=== PATIENT | male | born 1940 | race Two or more races ===

== ENCOUNTER 2019-04-22 09:38 | Inpatient (IN) | payer MEDICARE, MEDICAID ==
[~2019-04-22] VITALS: Ht 172.7 cm; Wt 73.5 kg
[2019-04-22] MEDS ORDERED: ONDANSETRON HCL 4MG/2ML INJ IV ONE (10:00)
[2019-04-22] MEDS ORDERED: FENTANYL CITRATE/PF 50MCG/ML 2ML VIAL IV ONE (10:00)
[2019-04-22] MEDS ORDERED: NITROGLYCERIN OINT 1GM/INCH UDPKT TD ONE (10:00)
[2019-04-22 10:09] LABS: BASOPHILS % 1.3 % (0.0-2.0); EOSINOPHILS % 3.7 % (0.0-5.0); HEMOGLOBIN. 7.9 g/dL (14.0-18.0); LYMPHOCYTES % 13.3 % (20.0-50.0); MEAN CORPUSCULAR HEMOGLOBIN 31.1 pg (28.0-32.0); MEAN CORPUSCULAR VOLUME 90.4 fL (80.0-94.0); MEAN PLATELET VOLUME 10.1 fl (7.4-10.4); NEUTROPHILS % 73.7 % (40.0-76.0); PLATELET 136 x1000/uL (130-400); RED BLOOD CELL COUNT 2.54 mill/uL (4.7-6.1)
[2019-04-22 10:13] LABS: CHLORIDE 110 mEq/L (98-107)
[2019-04-22 11:24] LABS: TOTAL IRON BINDING CAPACITY 181 ug/dL (250-450)
[2019-04-22] MEDS ORDERED: ONDANSETRON HCL 4MG/2ML INJ IV PRN (12:45)
[2019-04-22 12:51] LABS: CLARITY URINE CLEAR (CLEAR); COLOR URINE YELLOW (YELLOW); KETONES URINE NEGATIVE (NEGATIVE); LEUKOCYTE ESTERASE URINE NEGATIVE (NEGATIVE); NITRITE URINE NEGATIVE (NEGATIVE); OCCULT BLOOD URINE NEGATIVE (NEGATIVE); PROTEIN URINE 2+ (NEGATIVE); SPECIFIC GRAVITY URINE 1.013 (1.005-1.030); UROBILINOGEN URINE 0.2 E.U./dL (0.2-1.0)
[2019-04-22] MEDS ORDERED: IPRATROPIUM/ALBUTEROL 0.5-3(2.5)MG/3ML NEB NEB PRN (13:30)
[2019-04-22] MEDS ORDERED: CLONIDINE 0.1MG TABLET PO PRN (13:30)
[2019-04-22] MEDS ORDERED: ENOXAPARIN 40MG/0.4ML SYR SUBCUT SCH (13:30)
[2019-04-22] MEDS ORDERED: SODIUM CHLORIDE 0.9% 1,000 ML IV ONE (13:45)
[2019-04-22] MEDS: HYDROCODONE/APAP 7.5/325MG 1 TAB TABLET PO PRN ×2 (14:04→18:00)
[2019-04-22] MEDS: THIAMINE HCL 100MG TABLET PO SCH (14:04)
[2019-04-22] MEDS: FUROSEMIDE 40MG/4ML VIAL IV SCH (14:05)
[2019-04-22] MEDS ORDERED: HEPARIN 5000 UNITS/ML VIAL SUBCUT SCH (21:00)
[2019-04-22] MEDS ORDERED: ATORVASTATIN CALCIUM 40MG TABLET PO NR (21:00)
[2019-04-23] VITALS (7 sets, daily range): BP systolic 115–142; BP diastolic 51–85
[2019-04-23] MEDS ORDERED: DEXTROSE 50% WATER 50ML SYRINGE IV PRN (05:00)
[2019-04-23] MEDS: BLOOD SUGAR DIAGNOSTIC STRIP TEST SCH ×4 (06:15→21:17)
[2019-04-23] MEDS: INSULIN LISPRO 100 UNITS/ML SUBCUT SCH ×4 (07:50→21:00)
[2019-04-23 08:15] LABS: BASOPHILS % 1.3 % (0.0-2.0); EOSINOPHILS % 4.4 % (0.0-5.0); HEMATOCRIT. 22.3 % (42.0-52.0); HEMOGLOBIN. 7.6 g/dL (14.0-18.0); LYMPHOCYTES % 20.3 % (20.0-50.0); MEAN CORPUSCULAR HEMOGLOBIN 30.7 pg (28.0-32.0); MEAN CORPUSCULAR VOLUME 90.5 fL (80.0-94.0); MEAN PLATELET VOLUME 10.7 fl (7.4-10.4); MONOCYTES % 10.6 % (2.0-8.0); NEUTROPHILS % 63.4 % (40.0-76.0); PLATELET 133 x1000/uL (130-400); RED BLOOD CELL COUNT 2.47 mill/uL (4.7-6.1); RED CELL DISTRIBUTION WIDTH 15.5 % (11.6-14.6)
[2019-04-23 08:26] LABS: CHLORIDE 112 mEq/L (98-107)
[2019-04-23 08:45] LABS: LDL CHOLESTEROL 39 mg/dL (5-100)
[2019-04-23 08:46] LABS: HDL CHOLESTEROL 57 mg/dL (40-59)
[2019-04-23] MEDS ORDERED: SODIUM POLYSTYRENE SULFONATE 15 G/60 ML BOT PO SCH (09:00)
[2019-04-23] MEDS: ASPIRIN 81MG EC TABLET PO SCH (09:34)
[2019-04-23] MEDS: THIAMINE HCL 100MG TABLET PO SCH (09:34)
[2019-04-23] MEDS: HEPARIN 5000 UNITS/ML VIAL SUBCUT SCH ×2 (09:36→21:46)
[2019-04-23] MEDS: FUROSEMIDE 40MG/4ML VIAL IV SCH (10:21)
[2019-04-23] MEDS ORDERED: HEPARIN 1000 UNITS/ML 10ML ONE (13:32)
[2019-04-23] MEDS: ONDANSETRON HCL 4MG/2ML INJ IV PRN (14:32)
[2019-04-23] MEDS: ACETAMINOPHEN 325MG TABLET PO PRN (14:33)
[2019-04-23] MEDS: HYDROMORPHONE HCL/PF 2MG/ML CPJ IV PRN (15:14)
[2019-04-23] MEDS: ATORVASTATIN CALCIUM 40MG TABLET PO SCH (21:46)
[2019-04-24] VITALS (7 sets, daily range): BP systolic 127–151; BP diastolic 41–89
[2019-04-24 06:05] LABS: BASOPHILS % 1.2 % (0.0-2.0); EOSINOPHILS % 4.2 % (0.0-5.0); HEMATOCRIT. 23.5 % (42.0-52.0); LYMPHOCYTES % 24.8 % (20.0-50.0); MEAN CORPUSCULAR HEMOGLOBIN 30.6 pg (28.0-32.0); MEAN CORPUSCULAR VOLUME 89.1 fL (80.0-94.0); MEAN PLATELET VOLUME 10.6 fl (7.4-10.4); MONOCYTES % 11.6 % (2.0-8.0); NEUTROPHILS % 58.2 % (40.0-76.0); PLATELET 123 x1000/uL (130-400); RED BLOOD CELL COUNT 2.63 mill/uL (4.7-6.1); RED CELL DISTRIBUTION WIDTH 14.9 % (11.6-14.6)
[2019-04-24] MEDS: BLOOD SUGAR DIAGNOSTIC STRIP TEST SCH ×4 (07:06→20:42)
[2019-04-24] MEDS: INSULIN LISPRO 100 UNITS/ML SUBCUT SCH ×4 (07:07→20:42)
[2019-04-24] MEDS: ASPIRIN 81MG EC TABLET PO SCH (08:02)
[2019-04-24] MEDS: FUROSEMIDE 40MG/4ML VIAL IV SCH (08:02)
[2019-04-24] MEDS: HEPARIN 5000 UNITS/ML VIAL SUBCUT SCH ×2 (08:03→20:41)
[2019-04-24] MEDS: THIAMINE HCL 100MG TABLET PO SCH (08:13)
[2019-04-24] MEDS: HYDROMORPHONE HCL/PF 2MG/ML CPJ IV PRN (11:22)
[2019-04-24] MEDS: ACETAMINOPHEN 325MG TABLET PO PRN (17:12)
[2019-04-24 18:22] LABS: HEPATITIS B SURFACE ANTIGEN NEGATIVE
[2019-04-24 18:52] LABS: HEPATITIS A AB IGM NEGATIVE (NEGATIVE)
[2019-04-24] MEDS: ATORVASTATIN CALCIUM 40MG TABLET PO SCH (20:41)
[2019-04-25] VITALS (20 sets, daily range): BP systolic 139–172; BP diastolic 59–89
[2019-04-25 07:46] LABS: BASOPHILS % 1.9 % (0.0-2.0); EOSINOPHILS % 3.1 % (0.0-5.0); HEMOGLOBIN. 8.4 g/dL (14.0-18.0); LYMPHOCYTES % 22.5 % (20.0-50.0); MEAN CORPUSCULAR VOLUME 88.3 fL (80.0-94.0); MEAN PLATELET VOLUME 10.2 fl (7.4-10.4); MONOCYTES % 9.9 % (2.0-8.0); NEUTROPHILS % 62.6 % (40.0-76.0); PLATELET 140 x1000/uL (130-400); RED BLOOD CELL COUNT 2.72 mill/uL (4.7-6.1); RED CELL DISTRIBUTION WIDTH 14.3 % (11.6-14.6)
[2019-04-25] MEDS: INSULIN LISPRO 100 UNITS/ML SUBCUT SCH ×4 (07:50→22:38)
[2019-04-25 07:53] LABS: CHLORIDE 107 mEq/L (98-107)
[2019-04-25] MEDS: BLOOD SUGAR DIAGNOSTIC STRIP TEST SCH ×4 (08:12→22:38)
[2019-04-25] MEDS: ASPIRIN 81MG EC TABLET PO SCH (09:00)
[2019-04-25] MEDS: THIAMINE HCL 100MG TABLET PO SCH (09:00)
[2019-04-25] MEDS: HEPARIN 5000 UNITS/ML VIAL SUBCUT SCH ×2 (09:00→21:33)
[2019-04-25] MEDS: FUROSEMIDE 40MG/4ML VIAL IV SCH (09:44)
[2019-04-25] MEDS ORDERED: LACTULOSE 20G/30ML UDC PO NR (11:00)
[2019-04-25] MEDS: ONDANSETRON HCL 4MG/2ML INJ IV PRN (11:15)
[2019-04-25] MEDS ORDERED: SODIUM BICARBONATE 4% (2.4MEQ) 5ML VIAL IV ONE (12:34)
[2019-04-25] MEDS ORDERED: HEPARIN 1000 UNITS/ML 10ML ONE (12:35)
[2019-04-25] MEDS ORDERED: CEFAZOLIN 1000MG PREMIX 50 ML IV ONE (12:41)
[2019-04-25] MEDS ORDERED: FENTANYL CITRATE/PF 50MCG/ML 2ML VIAL ONE (12:41)
[2019-04-25] MEDS ORDERED: LIDOCAINE HCL 1% 20ML VIAL (Pyxis) INJ ONE (12:55)
[2019-04-25] MEDS ORDERED: CEFAZOLIN 1000MG PREMIX 50 ML IV NR (13:00)
[2019-04-25] MEDS ORDERED: LIDOCAINE HCL/EPINEPHRINE 1%-EPI 1:100,000 20 ML VIAL ONE (13:14)
[2019-04-25] MEDS ORDERED: FENTANYL CITRATE/PF 50MCG/ML 2ML VIAL IV ONE (13:15)
[2019-04-25] MEDS: ATORVASTATIN CALCIUM 40MG TABLET PO SCH (21:33)
[2019-04-25] MEDS: CARVEDILOL 3.125 MG TABLET PO SCH (21:33)
[2019-04-26] VITALS: BP 138/58
[2019-04-26 04:00] VITALS: BP 133/50
[2019-04-26] MEDS: HYDROMORPHONE HCL/PF 2MG/ML CPJ IV PRN (06:34)
[2019-04-26] MEDS: BLOOD SUGAR DIAGNOSTIC STRIP TEST SCH ×4 (06:56→21:26)
[2019-04-26 07:03] LABS: BASOPHILS % 1.7 % (0.0-2.0); EOSINOPHILS % 4.9 % (0.0-5.0); HEMATOCRIT. 25.7 % (42.0-52.0); MEAN CORPUSCULAR HEMOGLOBIN 30.8 pg (28.0-32.0); MEAN CORPUSCULAR VOLUME 88.5 fL (80.0-94.0); MEAN PLATELET VOLUME 10.1 fl (7.4-10.4); MONOCYTES % 9.8 % (2.0-8.0); NEUTROPHILS % 61.6 % (40.0-76.0); PLATELET 153 x1000/uL (130-400); RED BLOOD CELL COUNT 2.91 mill/uL (4.7-6.1); RED CELL DISTRIBUTION WIDTH 14.6 % (11.6-14.6)
[2019-04-26] MEDS: INSULIN LISPRO 100 UNITS/ML SUBCUT SCH ×4 (07:50→21:33)
[2019-04-26 08:00] VITALS: BP 136/49
[2019-04-26] MEDS: HEPARIN 5000 UNITS/ML VIAL SUBCUT SCH ×2 (09:00→21:26)
[2019-04-26] MEDS: CARVEDILOL 3.125 MG TABLET PO SCH ×2 (09:00→21:26)
[2019-04-26] MEDS: ASPIRIN 81MG EC TABLET PO SCH (09:24)
[2019-04-26] MEDS: THIAMINE HCL 100MG TABLET PO SCH (09:24)
[2019-04-26 12:00] VITALS: BP 110/59
[2019-04-26 16:00] VITALS: BP 151/62
[2019-04-26 20:00] VITALS: BP 135/48
[2019-04-26] MEDS: ATORVASTATIN CALCIUM 40MG TABLET PO SCH (21:26)
[2019-04-27] VITALS: BP 144/82
[2019-04-27 04:00] VITALS: BP 156/52
[2019-04-27] MEDS: BLOOD SUGAR DIAGNOSTIC STRIP TEST SCH ×4 (07:10→20:34)
[2019-04-27] MEDS: INSULIN LISPRO 100 UNITS/ML SUBCUT SCH ×4 (07:40→20:34)
[2019-04-27 08:13] LABS: HEMATOCRIT 26.6 % (42.0-52.0); HEMOGLOBIN 9.1 g/dL (14.0-18.0); MEAN CORPUSCULAR HEMOGLOBIN 30.5 pg (28.0-32.0); PLATELET 163 x1000/uL (130-400); RED BLOOD CELL COUNT 2.99 mill/uL (4.7-6.1)
[2019-04-27 08:45] VITALS: BP 161/57
[2019-04-27] MEDS: THIAMINE HCL 100MG TABLET PO SCH (08:52)
[2019-04-27] MEDS: ASPIRIN 81MG EC TABLET PO SCH (08:52)
[2019-04-27] MEDS: CARVEDILOL 3.125 MG TABLET PO SCH ×2 (08:53→20:33)
[2019-04-27] MEDS: HEPARIN 5000 UNITS/ML VIAL SUBCUT SCH ×2 (08:53→20:33)
[2019-04-27] MEDS: HYDROCODONE/APAP 7.5/325MG 1 TAB TABLET PO PRN (11:05)
[2019-04-27 12:00] VITALS: BP 161/66
[2019-04-27 16:14] VITALS: BP 103/58
[2019-04-27 20:00] VITALS: BP 151/55
[2019-04-27] MEDS: ATORVASTATIN CALCIUM 40MG TABLET PO SCH (20:33)
[2019-04-27] MEDS: LACTULOSE 20G/30ML UDC PO SCH (20:33)
[2019-04-28] VITALS: BP 134/66
[2019-04-28 06:00] VITALS: BP 139/52
[2019-04-28 06:15] LABS: HEMOGLOBIN 7.8 g/dL (14.0-18.0); MEAN CORPUSCULAR HEMOGLOBIN 30.3 pg (28.0-32.0); MEAN CORPUSCULAR VOLUME 89.4 fL (80.0-94.0); PLATELET 142 x1000/uL (130-400); RED BLOOD CELL COUNT 2.58 mill/uL (4.7-6.1); RED CELL DISTRIBUTION WIDTH 14.6 % (11.6-14.6)
[2019-04-28] MEDS: LACTULOSE 20G/30ML UDC PO SCH ×3 (06:31→12:12)
[2019-04-28] MEDS: INSULIN LISPRO 100 UNITS/ML SUBCUT SCH ×2 (06:36→12:05)
[2019-04-28] MEDS: BLOOD SUGAR DIAGNOSTIC STRIP TEST SCH ×2 (06:36→11:49)
[2019-04-28 08:41] VITALS: BP 142/52
[2019-04-28] MEDS: CARVEDILOL 3.125 MG TABLET PO SCH (08:49)
[2019-04-28] MEDS: THIAMINE HCL 100MG TABLET PO SCH (08:49)
[2019-04-28] MEDS: ASPIRIN 81MG EC TABLET PO SCH (08:49)
[2019-04-28] MEDS: HEPARIN 5000 UNITS/ML VIAL SUBCUT SCH (09:00)
[2019-04-28 12:22] VITALS: BP 139/50
[2019-04-28 12:40] VITALS: BP 139/50
[2019-04-28 13:31] LABS: INR 1.1; PARTIAL THROMBOPLASTIN TIME 28.8 sec (23.4-31.0); PROTHROMBIN TIME 11.4 sec (9.6-11.0)
== END 2019-04-28 15:38 | disposition home or self-care (01) | DRG 673 ==
LOC: ER 10:03 → 6WST 11:16 → EDBEDREQTM 11:21 → EDBEDREQ 11:21 → ENRESERV 21:37 → 8WST 04-26 15:53
PROVIDERS: ADMIT Internal Medicine Nephrology; ATTEND Internal Medicine Nephrology
PROC: 02H633Z Insertion of Infusion Device into Right Atrium, Percutaneous Approach (ICD-10-PCS; principal; 2019-04-23)
PROC: B548ZZA Ultrasonography of Superior Vena Cava, Guidance (ICD-10-PCS; 2019-04-23)
PROC: 5A1D70Z Performance of Urinary Filtration, Intermittent, Less than 6 Hours Per Day (ICD-10-PCS; 2019-04-23)
PROC: 0JH63XZ Insertion of Tunneled Vascular Access Device into Chest Subcutaneous Tissue and Fascia, Percutaneous Approach (ICD-10-PCS; 2019-04-25)
PROC: 02HV33Z Insertion of Infusion Device into Superior Vena Cava, Percutaneous Approach (ICD-10-PCS; 2019-04-25)
PROC: B5181ZA Fluoroscopy of Superior Vena Cava using Low Osmolar Contrast, Guidance (ICD-10-PCS; 2019-04-25)
DX: N17.9 Acute kidney failure, unspecified (principal); I50.43 Acute on chronic combined systolic (congestive) and diastolic (congestive) heart failure; I13.2 Hypertensive heart and chronic kidney disease with heart failure and with stage 5 chronic kidney disease, or end stage renal disease; N18.6 End stage renal disease; E11.22 Type 2 diabetes mellitus with diabetic chronic kidney disease; E78.5 Hyperlipidemia, unspecified; I44.0 Atrioventricular block, first degree; I25.5 Ischemic cardiomyopathy; E78.00 Pure hypercholesterolemia, unspecified; H54.62 Unqualified visual loss, left eye, normal vision right eye; R26.9 Unspecified abnormalities of gait and mobility; D64.9 Anemia, unspecified; I25.10 Atherosclerotic heart disease of native coronary artery without angina pectoris; Z99.2 Dependence on renal dialysis; Z79.82 Long term (current) use of aspirin; Z95.1 Presence of aortocoronary bypass graft; Z98.49 Cataract extraction status, unspecified eye
CPT/HCPCS: 36415; 36558; 36589; 71045; 76937; 77001; 80048; 80053; 80061; 81003; 82962; 83036; 83540; 83550; 83735; 83880; 84484; 85025; 85027; 85044; 86705; 86709; 86803; 86850; 86900; 87340; 93005; 93306; 97112; 97116; 97162; 99152; 99153; 99291; C1750; C1752; J0690; J1170; J1644; J1815; J1940; J2405; J3010; J3490; G0500